=== PATIENT | male | born 1980 | race Caucasian/White ===

== ENCOUNTER 2019-03-10 18:34 | Emergency (ER) | payer BC ==
[~2019-03-10] VITALS: Ht 175.2 cm; Wt 136.1 kg
[~2019-03-10 18:34] MED LIST: ANAPROX DS550 MG PO; BACTRIM DS 8001 TA1 PO; CLARITIN10 MG PO; CYCLOBENZAPRINE10 MG PO; ERYTHROMYCIN5 MG/G2 OPH; FLEXERIL10 MG PO; Fioricet 325 MG1 TAB PO; HYDROCODONE BIT1 T11 PO; KEFLEX500 MG PO; MEDROL DOSEPAK4 MG PO; MOTRIN800 MG PO; NAPROSYN500 MG PO; NKHM; NORCO 325 MG-51 TAB PO; Nystatin Ointme30 GM PO; PEN-VK500 MG PO; PERIDEX 480 ML480 ML PO; PREDNISONE10 MG PO; VICODIN 5/500 505 MG PO; ZOFRAN4 MG PO
[2019-03-10 19:28] LABS: BILIRUBIN NEGATIVE (NEGATIVE); BLOOD NEGATIVE (NEGATIVE); CLARITY SL CLOUDY (CLEAR); COLOR YELLOW (YELLOW); GLUCOSE NEGATIVE (NEGATIVE); KETONE NEGATIVE (NEGATIVE); LEUKO ESTERASE 1+ (NEGATIVE); NITRITE NEGATIVE (NEGATIVE)
[2019-03-10 19:46] LABS: BACTERIA 1+; WBC 41-50 wbc/hpf (0-5)
[2019-03-10] MEDS ORDERED: FLAGYL500 MG PO (20:09)
[2019-03-10] MEDS ORDERED: PROAIR HFA8.5 GM INH (20:29)
[2019-03-10] MEDS ORDERED: PREDNISONE50 MG PO (20:29)
[2019-03-10] MEDS ORDERED: TESSALON PERLE100 M1 PO (20:29)
[2019-03-10] MEDS ORDERED: ZITHROMAX250 MG PO (20:29)
[2019-03-14 22:04] LABS: GONOCOCCUS BY NAA Negative (Negative)
== END 2019-03-10 20:45 | disposition home or self-care (01) ==
LOC: ED 18:34
PROVIDERS: Nurse Practitioner Family
DX: J20.9 Acute bronchitis, unspecified (principal); Z98.890 Other specified postprocedural states

== ENCOUNTER → 2021-06-12 | Outpatient (CLI) | payer OTHER ==
[~2021-06-12] MED LIST changes: +FLAGYL500 MG PO; +PREDNISONE50 MG PO; +PROAIR HFA8.5 GM INH; +TESSALON PERLE100 M1 PO; +ZITHROMAX250 MG PO
== END | disposition home or self-care (01) ==
LOC: COVID19 16:05
PROVIDERS: ATTEND Internal Medicine
DX: Z20.822 Contact with and (suspected) exposure to COVID-19 (principal)

== ENCOUNTER 2024-12-23 15:33 | Emergency (ER) | payer SELFPAY ==
[~2024-12-23] VITALS: Ht 172.7 cm; Wt 165.6 kg
[2024-12-23] MEDS ORDERED: PREDNISONE50 MG PO (15:59)
== END 2024-12-23 16:16 | disposition home or self-care (01) ==
LOC: ED 15:33
DX: L23.7 Allergic contact dermatitis due to plants, except food (principal); G43.909 Migraine, unspecified, not intractable, without status migrainosus; Z79.899 Other long term (current) drug therapy; Z98.890 Other specified postprocedural states